=== PATIENT | female | born 1995 | race American Indian/Alaskan Native ===

== ENCOUNTER 2016-08-17 19:07 | Emergency (ER) | payer MEDICAID ==
[2016-08-17 19:12] VITALS: BMI 20.5
[2016-08-17 19:16] VITALS: RESP 16; O2SAT 100
--- NOTE | 2016-08-17 19:31 | ED PDOC ---
Arrival/HPI <Tariq Burr - Last Filed: 08/17/16 21:57> - History of Present Illness Time/Duration: 4-6 hours Symptom Onset: Sudden Symptom Course: Improving Quality: Cramping Severity Level: 3 Activities at Onset: Light Context: Standing <Gaviota Grimm - Last Filed: 08/17/16 23:19> - General Chief Complaint: Female Genitourinary Time Seen by Provider: 08/17/16 19:23 - History of Present Illness Narrative History of Present Illness (Text): 08/17/16 19:42 20 yo F w h/o alpha thalassemia minor presents to ER with c/o heavy menstruation upon waking today at noon. Patient states she awoke from sleep and upon standing up from bed, felt vaginal blood running down her legs. Patient states she usually has ~30-day cycle, first day LMP 07/16. She usually uses ~12 tampons per day and states she has used ~5-6 pads in the past 8 hours since waking up. Patient admits to mild frontal headache and lower abdominal cramping that feels similar to menstrual cramps she has every month. Denies CP, SOB, n/v/ d/c, fevers, chills, rashes, edema, dizziness, confusion. Patient states she used to get iron infusions for her alpha thalassemia, last infusion was 2-3 years ago; patient states she does not take her prescribed oral iron pills because they make her nauseated. (Gaviota Grimm) Past Medical History - Provider Review Nursing Documentation Reviewed: Yes - Travel History Have you recently traveled outside [place] w/in the past 3 mons?: No - Cardiac Hx Cardiac Disorders: No - Pulmonary Hx Respiratory Disorders: No - Neurological Hx Neurological Disorder: No - HEENT Hx HEENT Disorder: No - Renal Hx Renal Disorder: No - Endocrine/Metabolic Hx Endocrine Disorders: No - Hematological/Oncological Hx Blood Disorders: Yes Hx Anemia: Yes Hx Blood Transfusions: Yes - Integumentary Hx Dermatological Disorder: No - Musculoskeletal/Rheumatological Hx Musculoskeletal Disorders: No - Gastrointestinal Hx Gastrointestinal Disorders: No - Genitourinary/Gynecological Hx Genitourinary Disorders: No - Psychiatric Hx Psychophysiologic Disorder: No Hx Substance Use: No - Surgical History Other/Comment: vulva cyst removal <Gaviota Grimm - Last Filed: 08/17/16 23:19> Family/Social History - Physician Review Nursing Documentation Reviewed: Yes Family/Social History: Unknown Family HX Smoking Status: Never Smoked Hx Alcohol Use: Yes Frequency of alcohol use: Socially Hx Substance Use: No <Gaviota Grimm - Last Filed: 08/17/16 23:19> Allergies/Home Meds <Tariq Burr - Last Filed: 08/17/16 21:57> <Gaviota Grimm - Last Filed: 08/17/16 23:19> Allergies/Adverse Reactions: Allergies No Known Allergies Allergy (Verified 08/17/16 19:12) Review of Systems - Physician Review All systems were reviewed & negative as marked: Yes - Review of Systems Constitutional: absent: Fatigue, Fevers Eyes: absent: Vision Changes, Photophobia ENT: absent: Tinnitus, Epistaxis Respiratory: absent: SOB, Cough, Sputum Cardiovascular: absent: Chest Pain, Palpitations, Edema, Calf Pain, [place], Syncope Gastrointestinal: Abdominal Pain (lower cramping). absent: Constipation, Diarrhea, Nausea, Vomiting, Hematochezia, Hematemesis Genitourinary Female: Vaginal Bleeding. absent: Dysuria, Frequency, Hematuria, Vaginal Discharge Musculoskeletal: Normal. absent: Back Pain, Neck Pain Skin: absent: Rash, Skin Lesions Neurological: Headache (mild frontal). absent: Dizziness, Focal Weakness Endocrine: absent: Diaphoresis, Polyuria, Polydipsia Hemo/Lymphatic: absent: Easy Bleeding, Easy Bruising Psychiatric: absent: Anxiety, Depression <Gaviota Grimm - Last Filed: 08/17/16 23:19> Physical Exam Vital Signs Reviewed: Yes Temperature: Afebrile Blood Pressure: Normal Pulse: Regular Respiratory Rate: Normal Appearance: Positive for: Well-Appearing, Non-Toxic, Comfortable Pain Distress: None Mental Status: Positive for: Alert and Oriented X 3 - Systems Exam Head: Present: Atraumatic, Normocephalic Pupils: Present: PERRL Extroacular Muscles: Present: EOMI Conjunctiva: Present: Normal. No: Injected, Icteric Mouth: Present: Dry Pharnyx: Present: Normal Nose (External): Present: Atraumatic Neck: Present: Normal Range of Motion. No: Meningeal Signs, JVD Respiratory/Chest: Present: Clear to Auscultation, Good Air Exchange. No: Respiratory Distress, Accessory Muscle Use, Wheezes, Rhonchi Cardiovascular: Present: Regular Rate and Rhythm, Normal S1, S2. No: Murmurs Abdomen: Present: Normal Bowel Sounds. No: Tenderness, Distention, Peritoneal Signs Genitourinary/Pelvic Exam: Present: Normal External Genitalia, Vaginal Bleeding (very mild). No: Vaginal Discharge, Vaginal Lesions, Odor Back: Present: Normal Inspection. No: CVA Tenderness Upper Extremity: Present: Normal Inspection, NORMAL PULSES, Capillary Refill < 2s. No: Cyanosis, Edema Lower Extremity: Present: Normal Inspection. No: Edema, CALF TENDERNESS, NORMAL PULSES, Capillary Refill < 2 s Neurological: Present: GCS=15, CN II-XII Intact, Speech Normal Skin: Present: Warm, Dry, Normal Color. No: Rashes Psychiatric: Present: Alert, Oriented x 3, Normal Insight, Normal Concentration <Gaviota Grimm - Last Filed: 08/17/16 23:19> Vital Signs Temp Pulse Resp BP Pulse Ox 08/17/16 19:12 98 F 83 16 116/80 100 Medical Decision Making <Tariq Burr - Last Filed: 08/17/16 21:57> Re-evaluation Time: 20:59 Reassessment Condition: Improved - Lab Interpretations I have reviewed the lab results: Yes <Gaviota Grimm - Last Filed: 08/17/16 23:19> ED Course and Treatment: Impression: Pt seen and evaluated with medical i d sales. Aware and agree with HPI, clinical findings, plan, and management. Plan: -- Labs -- Urinalysis -- IV fluids -- Tylenol -- Reassess and disposition Progress Notes: (Tariq Burr) 08/17/16 20:00 20yo F w h/o a-thalassemia minor presents with heavy vaginal bleeding this morning, since resolved, and mild lower abdominal cramping. Minimal vaginal blood on exam. Blood work, HCG, UA, tylenol, saline bolus. 08/17/16 20:58 Patient states she is feeling better, cramps improved. Bleeding has not worsened since presentation to ER. Patient states she had only gone through one sanitary pad in the past 2.5 hours. (Gaviota Grimm) - Lab Interpretations Lab Results: 08/17/16 20:28 08/17/16 21:25 Lab Results 08/17/16 21:25: Sodium 138, Potassium 3.5 L, Chloride 102, Carbon Dioxide 27, Anion Gap 13, BUN 9, Creatinine 0.6, Est GFR ( Amer) > 60, Est GFR (Non- Af Amer) > 60, Random Glucose 79, Calcium 9.0 08/17/16 20:28: WBC 6.5, RBC 5.36, Hgb 11.9 L, Hct 37.5, MCV 70.0 L, MCH 22.2 L , MCHC 31.7, RDW 17.0 H, Plt Count 335, MPV 10.6, Gran % 58.4, Lymph % (Auto) 32.1, [place] % (Auto) 6.6 H, Eos % (Auto) 2.6, Baso % (Auto) 0.3, Gran # 3.81, Lymph # 2.1, [place] # 0.4, Eos # 0.2, Baso # 0.02, Urine Color Yellow, Urine Appearance Clear, Urine pH 6.5, Ur Specific [place] >= 1.030, Urine Protein 30 H , Urine Glucose (UA) Negative, Urine Ketones Trace H, Urine Blood Large H, Urine Nitrate Negative, Urine Bilirubin Negative, Urine Urobilinogen 1.0 H, Ur Leukocyte Esterase Negative, Urine RBC 20 - 25, Urine WBC 1 - 3, Ur Epithelial Cells 6 - 8, Amorphous Sediment Few, Urine Bacteria Many, Urine Other Uyeast, Urine HCG, Qual Negative - Medication Orders Current Medication Orders: Discontinued Medications Acetaminophen (Tylenol 325mg Tab) 650 mg PO STAT STA Stop: 08/17/16 19:42 Last Admin: 08/17/16 20:37 Dose: 650 MG MAR Pain/Vitals Document 08/17/16 20:37 (Rec: 08/17/16 20:37 [id number]) Pain Reassessment Is This A Pain ReAssessment? No Sleep Is patient sleeping during reassessment? No Presence of Pain Presence of Pain Yes Pain Scale Used Pain Scale Used Numeric Location Left, Right or Bilateral Bilateral Upper or Lower Lower Pain Location Body Site Abdomen Description Cramping Intensity 7 Scale Used Numeric Sodium Chloride (Sodium Chloride 0.9%) 1,000 mls @ 999 mls/hr IV .Q1H1M STA Stop: 08/17/16 20:41 Last Admin: 08/17/16 20:38 Dose: 999 MLS/HR eMAR Start Stop Document 08/17/16 20:38 MR (Rec: 08/17/16 20:38 MR [id number]) Intravenous Solution Start Date 08/17/16 Start Time 20:38 End Date 08/17/16 End time 21:38 Total Infusion Time 60 - PA / TRAY CHECKER / Resident Statement ISAAC has reviewed & agrees with the documentation as recorded. ISAAC has examined the patient and agrees with the treatment plan. <Tariq Burr - Last Filed: 08/17/16 21:57> Disposition/Present on Arrival <aTriq Burr - Last Filed: 08/17/16 21:57> - Present on Arrival Any Indicators Present on Arrival: No History of DVT/PE: No History of Uncontrolled Diabetes: No Urinary Catheter: No History of Decub. Ulcer: No History Surgical Site Infection Following: None - Disposition Have Diagnosis and Disposition been Completed?: Yes Disposition Time: 23:06 Patient Plan: Discharge <Gaviota Grimm - Last Filed: 08/17/16 23:19> - Disposition Diagnosis: Heavy menstrual bleeding, Menorrhagia with regular cycle Disposition: HOME/ ROUTINE Patient Problems: Current Active Problems Problem Status Diagnosed Heavy menstrual bleeding Acute Condition: STABLE Discharge Instructions (ExitCare): Menorrhagia (ED) Print Language: NIGERIEN Additional Instructions: Please followup with your primary care physician within 1-3 days. Please followup with gynecology within 1-3 days. Prescriptions: Ondansetron ODT [Zofran ODT] 4 mg PO DAILY PRN #6 odt PRN Reason: Nausea/Vomiting Referrals: Sheri Dawson MD [Primary Care Provider] - Follow up with primary Annette Hernandez MD [Medical Doctor] - Follow up with primary
[2016-08-17 20:38] LABS: ADD MANUAL DIFF? NO
[2016-08-17] MEDS: Sodium Chloride 0.9% 1,000 ML IV STA (20:38)
[2016-08-17 20:44] LABS: PH,URINE 6.5 (4.7-8.0); URINE BILIRUBIN NEGATIVE (NEGATIVE); URINE BLOOD LARGE (NEGATIVE); URINE GLUCOSE (UA) NEGATIVE (NEGATIVE); URINE KETONE TRACE mg/dL (NEGATIVE); URINE LEUKOCYTE ESTERASE NEGATIVE Leu/uL (NEGATIVE); URINE PROTEIN 30 mg/dL (<30 mg/dL)
[2016-08-17 20:45] LABS: URINE APPEARANCE CLEAR (CLEAR); URINE COLOR YELLOW (YELLOW)
[2016-08-17 20:48] LABS: BASO # 0.02 K/mm3 (0.0-2.0); BASO % 0.3 % (0.0-3.0); EOS # 0.2 (0.0-0.7); EOS % 2.6 % (1.5-5.0); GRAN # 3.81 (1.4-6.5); GRAN % 58.4 % (50.0-68.0); HEMATOCRIT 37.5 % (36.0-48.0); LYMPH # 2.1 (1.2-3.4); LYMPH % 32.1 % (22.0-35.0); MEAN CORPUSCULAR HEMOGLOBIN 22.2 pg (25.0-35.0); MEAN CORPUSCULAR HGB CONC 31.7 g/dl (31.0-37.0); MEAN PLATELET VOLUME 10.6 fl (7.0-11.0); MONO # 0.4 (0.1-0.6); MONO % 6.6 % (1.0-6.0); PLATELET COUNT 335 10^3/uL (120.0-450.0); WHITE BLOOD COUNT 6.5 10^3/ul (4.5-11.0)
[2016-08-17 20:51] LABS: URINE AMORPHOUS SEDIMENT FEW; URINE BACTERIA MANY (NEG); URINE RBC 20 - 25 /hpf (0-2)
[2016-08-17 21:45] LABS: BLOOD UREA NITROGEN 9 mg/dL (7-21); CARBON DIOXIDE 27 mmol/L (21-33); CHLORIDE 102 mmol/L (98-107); GFR AFRICAN-AMERICAN > 60; GLUCOSE,RANDOM 79 mg/dL (70-110); POTASSIUM 3.5 mmol/L (3.6-5.0); SODIUM 138 mmol/L (132-148)
[2016-08-17] MEDS ORDERED: Potassium Chloride 20 mEq ER Tab PO STA (23:04)
[2016-08-17 23:45] VITALS: BP 108/63; PULSE 65; TEMP 98.2
== END 2016-08-17 23:50 | disposition home or self-care (01) ==
LOC: ED 19:07
DX: N92.0 Excessive and frequent menstruation with regular cycle (principal)
CPT/HCPCS: 80048; 81001; 84703; 85025; 96360; 99283; J7040